=== PATIENT | female | born 1990 | race Caucasian/White ===

== ENCOUNTER 2023-07-12 00:35 | Outpatient (CLI) | payer MEDICAID, SELFPAY | END 2023-07-12 00:36 | disposition home or self-care (01) | LOC: AMB 07-15 09:57 | PROVIDERS: PCP Family Medicine; Visit Provider Family Medicine | DX: T74.21XA Adult sexual abuse, confirmed, initial encounter (principal) | CPT/HCPCS: A0425; A0429 ==

== ENCOUNTER 2023-07-12 01:07 | Emergency (ER) | payer OTHER, SELFPAY ==
[2023-07-12 01:16] VITALS: BP 134/98; PULSE 104; RESP 20; TEMP 36.8; O2SAT 99; BMI 32.4
--- NOTE | 2023-07-12 02:53 | ED.NURSE ---
ANA PAULA nurse in room
--- NOTE | 2023-07-12 03:13 | ED.NURSE ---
Professional guardian, Elisa Dick, gives verbal consent for the [facility] exam.
[2023-07-12] MEDS: LIDOCAINE 1% 5 ml (pf) 5 ML VIAL 1 ML IM (04:48)
[2023-07-12] MEDS: cefTRIAXone 500 MG VIAL IM (04:48)
--- NOTE | 2023-07-12 04:49 | ED.NURSE ---
ANA PAULA SHERIDAN completed exam. Medication given per JAN. Hand-written prescriptions given per [facility] director request.
--- NOTE | 2023-07-12 04:52 | ED.NURSE ---
Patient left department ambulatory en route back to [facility] with staff. Patient was given discharge instructions by the [facility] nurse.
--- NOTE | 2023-07-12 08:21 | PC.NURSE ---
[facility] pharmacy called to get info on which Doctor saw pt in ER
--- NOTE | 2023-07-16 00:04 | PM.EN ---
Chart Event Note Date Seen: 07/12/23 Chart Event Note: Patient opted not to see the ER provider and was dealt with by the [facility] nurse only.
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
== END 2023-07-12 04:55 | disposition home or self-care (01) ==
LOC: ED 04:45
PROVIDERS: Emergency Provider Family Medicine; PCP Family Medicine
DX: T76.21XA Adult sexual abuse, suspected, initial encounter (principal)
CPT/HCPCS: 96372; 99281; 99282; J0696